=== PATIENT | female | born 1995 | race African-American/Black ===

== ENCOUNTER → 2016-11-10 16:23 | Observation (INO) ==
--- NOTE | 2016-11-10 16:30 | OB/GYN Progress Note ---
Date of Encounter: 11/10/16 Time of Encounter: 16:25 - Assessment and Plan (1) Vaginal bleeding during , antepartum Current Visit: Yes Status: Resolved resolved (2) Vaginal discharge during in second trimester Current Visit: Yes Status: Acute speculum exam completed vaginosis panel, GC/chlamydia - patient will be called with results (3) 25 weeks gestation of Current Visit: Yes Status: Acute Subjective - Subjective Interval history: Effie Sorensen is a 21 yo female at 25 weeks who presents to L&D with complaints of vaginal spotting and abdominal cramping earlier today. Since she has been at the hospital, she has not had any vaginal bleeding. Reports good movement. Denies headache, blurred vision, dizziness, loss of vaginal fluid. She is concerned that she might have an STD because she just found out her partner has been cheating. Antepartum ROS: vaginal bleeding (cramping) Objective - Vital Signs Vital Signs: Intake and Output 11/10/16 11/10/16 11/10/16 07:59 15:59 23:59 Other: Weight 67.5 kg Patient Weight 11/10/16 23:59 Weight 67.5 kg - Exam FHR comments: FHT reassuring for gestational age Abdomen: Present: normal appearance, gravid Uterus: Present: normal Cervical dilation: 0 Cervix effacement: thick Comments: : speculum - white frothy discharge in vagina, no open sores
[2016-11-10 17:44] LABS: Candida DNA Not Detected (Not Detect); Gardnerella DNA ***DETECTED*** (Not Detect); Trichomonas DNA Not Detected (Not Detect)
== END | disposition home or self-care (01) ==
LOC: 1NENULAB
PROVIDERS: ADMIT Obstetrics & Gynecology; ATTEND Obstetrics & Gynecology

== ENCOUNTER → 2016-11-13 02:05 | Observation (INO) ==
--- NOTE | 2016-11-13 00:36 | OB/GYN History & Physical ---
Date of Encounter: 11/13/16 Time of Encounter: 00:35 Assessment and Plan (1) Antepartum bleeding, second trimester Current visit: Yes Status: Acute Extended monitoring Serial cervical exam Speculum exam Monitor for contractions History of Present Illness Chief complaint: Episode of Vaginal Spotting HPI: Ms. Sorensen is a 21 year old female, , 25w2d who presents to L&D with complaints of vaginal spotting (was here three days ago on the 4th). Reports good movement and denies contractions. Reports a "small gush" of blood today. Pt endorses sexual intercourse prior to noticing bloody vaginal discharge. Past Med Surg Social Fam HX - Past Medical History Medical history: no medical history Psychiatric history: no psych history - Past Surgical History Surgical History: no surgical history, other - Social History Smoking Status: Current every day smoker Smokeless Tobacco Status: No Alcohol use: none, occasionally Drug use: none - Family History Mother Adopted: Yes Medications and Allergies Prenata Chewable Tablet 1 tab PO DAILY 06/17/15 [History] Allergies No Known Allergies Allergy (Verified 12/03/14 15:39) Review of System OB - Genitourinary Genitourinary: vaginal discharge - Menstruation Menstruation: amenorrhea Exam - Constitutional Constitutional: well developed, well nourished, no acute distress - HEENT HEENT: Mucus Membranes Moist - Neck Neck exam: full ROM - Lungs Respiratory exam: CTAB - Cardiovascular Cardiovascular exam: +S2 - Abdomen Abdomen: Present: bowel sounds normal - Vulva Vulva: bilateral: normal - Vagina Vagina: Present: normal moisture - Cervix Dilation: 0 Effacement: 10 Station: -3 - Uterus Uterus exam: Present: enlarged Results All other labs normal.
--- NOTE | 2016-11-15 13:09 | Discharge Summary ---
Date of Encounter: 11/13/16 Time of Encounter: 02:15 - Discharge Diagnosis (1) Vaginal bleeding in Priority: Primary Status: Acute Comments: Patient left AMA . (2) 25 weeks gestation of Priority: Secondary Status: Acute - Discharge Medications Home Medications: Prenata Chewable Tablet 1 tab PO DAILY 06/17/15 [History] Allergies/Adverse Reactions: Allergies No Known Allergies Allergy (Verified 12/03/14 15:39) Date of admission: 11/13/16 00:08 Primary care physician: PCP NONE - Patient Status Disposition: Left Against Medical Advice Condition: Undetermined Functional capacity at discharge: independent ambulation Overall status at discharge: patient is not back to baseline - Discharge Instructions Follow Up With: NONE,PCP [Primary Care Provider] - Additional Instructions: LABOR AND DELIVERY DISCHARGE INSTRUCTIONS Signs and Symptoms to be Reported to your Doctor Immediately: * Sudden gush, continuous or intermittent lead of fluid from vagina (note the time of gush and color of fluid) * Onset of bright red vaginal bleeding with or without pain (if you had a vaginal exam during this visit you may notice some dark red spotting. This is normal.) * Lower abdominal cramping or backache that is premenstrual-like feeling. * More than 6 contractions in one hour. * Burning during urination, having to urinate more frequently or pain in your mid-back. * A change in the baby's activity. This could be an increase or decrease in activity. * Severe headache which does not go away with tylenol. * Sudden swelling in the face, hands, arms and/or legs. * Upper abdominal pain - sometimes associated with heartburn or nausea and is not relieved by Maalox, Mylanta or Tums. * Dizziness or blurred vision or visual disturbances (seeing stars/lights). * Kick Counts One hour after a meal, lay down on one side in a quiet place. Count the number of triny the baby moves during an hour. If less than 6 movements, notify your physician. Diet: *Force fluids - 8-10 tall glasses of fluid per day. May include popsicles and jello. *Limit caffeine - this includes chocolate, coffee, tea, any soft drink containing such as all donta, Bradford Yellow and Mountain Dew - Diet and Activity Diet: advance to your usual diet Hospital Course CRE[facility] Time Attestation: Total time spent providing and/or coordinating discharge services: Exam - Constitutional General appearance IM: A&O X 3 - Respiratory Respiratory exam: Present: CTAB - Cardiovascular Cardiovascular exam IM: Present: RRR - GI/Abdominal GI/Abdominal exam IM: normal bowel sounds - Extremities Exam Extremities exam IM: Present: full ROM - Neurological Exam Neurological exam: CN II-XII intact - VTE Reasons for not Prescribing Prophylaxis: Treatment not Indicated - Low risk for VTE - Attending Attestation shannon cordero md [facility]
== END | disposition left against medical advice (07) ==
LOC: 1NENULAB
PROVIDERS: ADMIT Obstetrics & Gynecology; ATTEND Obstetrics & Gynecology

== ENCOUNTER 2017-01-26 12:49 | Observation (INO) ==
[2017-01-26 13:37] LABS: Amphetamine Screen,Urine Negative ng/mL (Cutoff=1000); Barbiturate Screen,Urine Negative ng/mL (Cutoff=200); Benzodiazepines Screen,Urine Negative ng/mL (Cutoff=200); Cannabinoid Screen,Urine Negative ng/mL (Cutoff = 50); Cocaine Screen,Urine Negative ng/mL (Cutoff= 300); Opiate Screen,Urine Positive ng/mL (Cutoff=300); Phencyclidine Screen,Urine Negative ng/mL (Cutoff=25)
--- NOTE | 2017-01-26 16:44 | OB/GYN Progress Note ---
Addendum entered and electronically signed by Hubert Keen DO 01/26/17 17 :02: Patient was only given a one time dose of vistaril. Original Note: Date of Encounter: 01/26/17 Time of Encounter: 13:45 - Assessment and Plan (1) 36 weeks gestation of Current Visit: Yes Status: Acute (2) Uterine contractions Current Visit: Yes Status: Acute Patient had a reactive NST. Cervical dilation stayed at 3 cm after 2 hours of observation. Denies vaginal fluid leakage or bleeding. She does not meet criteria for admission. UDS was positive for opiates. - Will be discharged home with vistaril. - Repeat UDS test (per patient's request). I examined this patient and my medical decision-making was reviewed with the Resident Physician. I agree with the documented findings, disposition and treatment plan as described except to the extent set forth below. Patient made cervical change at last vaginal exam;was admitted for labor. See H &P for admission documentation. Annie Kirkpatrick CNM Subjective - Subjective Principal diagnosis: Labor evaluation Interval history: Ms. Chou is a 21 YO female at 36 5/7 wks presentation with a PMH of drug abuse that presents for contractions. She says they started around 1 pm yesterday and have been 9-10 minutes apart. She denies any vaginal fluid leakage or bleeding, She admits to occasional nausea throughout her , but denies vomiting. She denies any DELVALLE, vision changes, chest pain, shortness of breath, fever, or chills. HepBSAg: non-reactive (07/04/16) Rubella Ab: positive T. Pallidum: non-reactive HIV Ag/Ab: non-reactive GBS: negative Blood type: A+ Antepartum ROS: contractions Objective - Vital Signs Vital Signs: Intake and Output 01/26/17 01/26/17 01/26/17 07:59 15:59 23:59 Other: Weight 73 kg Patient Weight 01/26/17 23:59 Weight 73 kg BP: 138/77 Pulse: 99 - Exam FHR: auscultation normal Auscultation: bilateral: normal Abdomen: Present: normal appearance, soft, gravid. Absent: tenderness Uterus: Present: normal, firm Cervical dilation: 2-3 cm on arrival (per nurse). Cervix effacement: 75% (per nurse) Comments: CV: RRR. +S1 +S2 no murmurs Neuro: +2 DTRs in upper and lower extremities bilaterally Ext: Pedal and radial pulses intact and symmetrical bilaterally - Labs Labs: Abnormal lab results Urine Opiates Screen Positive ng/mL ([id number]=[id number]) H 01/26/17 12:55
[2017-01-26] MEDS ORDERED: hydrOXYzine pamoate 25 MG CAPSULE PO ONE (17:00)
--- NOTE | 2017-01-26 17:34 | Event Note ---
Date of Encounter: 01/26/17 Time of Encounter: 17:30 Discussed positive opiate results with Acacia VIEIRA. Added pain management drug screen to urine already sent to lab. Acacia to speak with patient regarding positive results. Second rapid UDS results are negative. Urine was witnessed void.
[2017-01-26 17:58] LABS: Amphetamine Screen,Urine Negative ng/mL (Cutoff=1000); Barbiturate Screen,Urine Negative ng/mL (Cutoff=200); Benzodiazepines Screen,Urine Negative ng/mL (Cutoff=200); Cannabinoid Screen,Urine Negative ng/mL (Cutoff = 50); Cocaine Screen,Urine Negative ng/mL (Cutoff= 300); Opiate Screen,Urine Negative ng/mL (Cutoff=300); Phencyclidine Screen,Urine Negative ng/mL (Cutoff=25)
--- NOTE | 2017-01-26 18:16 | OB/GYN History & Physical ---
Date of Encounter: 01/26/17 Time of Encounter: 18:13 Assessment and Plan (1) Uterine contractions Current visit: Yes Status: Acute Cervical change from 2.5 - 4 cm dilation since admission Admit for labor Patient may fentanyl and/or epidural upon request GBS negative Consider AROM if continues to make change Anticipate vaginal delivery POC per consult. (2) History of drug abuse Current visit: No Status: Acute First Rapid UDS positive for opiates. After discussion with patient, second rapid UDS that was witnessed was negative for opiates. Second urine sent to send-out lab for pain management drug screen. Will need cord-stat and infant will be on 3 day hold. (3) 36 weeks gestation of Current visit: Yes Status: Acute History of Present Illness Chief complaint: Contractions HPI: Ms. Chou is a 21 YO female at 36 5/7 wks presentation with a PMH of drug abuse that presents for contractions. She says they started around 1 pm yesterday and have been 9-10 minutes apart. She denies any vaginal fluid leakage or bleeding, She admits to occasional nausea throughout her , but denies vomiting. She denies any DELVALLE, vision changes, chest pain, shortness of breath, fever, or chills. HepBSAg: non-reactive (07/04/16) Rubella Ab: positive T. Pallidum: non-reactive HIV Ag/Ab: non-reactive GBS: negative Blood type: A+ Past Med Surg Social Fam HX - Past Medical History Medical history: no medical history Psychiatric history: no psych history - Past Surgical History Surgical History: no surgical history, other - Social History Smoking Status: Current every day smoker Smokeless Tobacco Status: No Alcohol use: none, occasionally Drug use: none - Family History Mother History Unknown: Yes Adopted: Yes Living Status: Unknown Obstetrical History - Pregnancies : 3 Para: 2 Term: 2 : 0 Ab's: 0 Livin Medications and Allergies Prenata Chewable Tablet 1 tab PO DAILY 06/17/15 [History] 3 Allergy/AdvReac Type Severity Reaction Status Date / Time No Known Allergies Allergy Verified 12/03/14 15:39 Review of System OB All systems PM: reviewed and no additional remarkable complaints except as stated Exam - Constitutional Constitutional: well developed, well nourished, average body habitus, moderate distress - HEENT HEENT: Normocephaly, Mucus Membranes Moist - Lungs Respiratory exam: CTAB - Cardiovascular Cardiovascular exam: RRR, +S1, +S2 - Breasts Breast: bilateral: normal - Abdomen Abdomen: Present: bowel sounds normal, gravid, non tender - Extremities Extremities exam: normal capillary refill, normal inspection, radial pulses palpable and symmetrical Deep Tendon Reflex Grade: 2+ Normal - Vulva Vulva: bilateral: normal - Vagina Vagina: Present: normal moisture - Cervix Dilation: 4 Effacement: 80 Station: -2 - Uterus Uterus exam: Present: normal size, normal contour - Anus/Rectum Anus/Rectum: Present: normal perianal skin Results All other labs normal. - VTE Reasons for not Prescribing Prophylaxis: Treatment not Indicated - Low risk for VTE
[2017-01-26] MEDS ORDERED: *HR* FentaNYL (PF) 100 MCG/2 ML VIAL IVP PRN (18:23)
[2017-01-26] MEDS ORDERED: Famotidine 20 MG/2 ML VIAL IVP PRN (18:23)
[2017-01-26] MEDS ORDERED: Ondansetron 4 MG/2 ML VIAL IVP PRN (18:23)
[2017-01-26] MEDS ORDERED: Naloxone 0.4 MG/ML INJ IVP PRN ×2 (18:23→19:18)
[2017-01-26] MEDS ORDERED: D5% in Lactated Ringers 1,000 ML IVC SCH (18:30)
[2017-01-26 19:16] LABS: Basophils % 0.2 %; Hemoglobin 10.9 g/dL (11.5-15.4); Immature Granulocytes % 0.8 % (0-4); Lymphocytes % 8.5 %; Mean Corpuscular HGB Conc 36.3 g/dL (31.6-35.5); Mean Corpuscular Hemoglobin 29.1 pg (28.0-33.3); Mean Corpuscular Volume 80.2 fL (83.0-100.0); Mean Platelet Volume 11.5 fL (9.4-12.4); Monocytes # 1.2 K/mcL (0.0-1.3); Monocytes % 4.9 %; Neutrophils # 20.3 K/mcL (1.6-8.9); Platelet Count 285 K/mcL (140-400); Red Blood Count 3.74 M/mcL (3.82-4.97); Red Cell Distribution Width 13.6 % (11.5-14.5); Segmented Neutrophils % 85.6 %
[2017-01-26] MEDS ORDERED: Ringers Solution, Lactated 1,000 ML ONE (19:16)
[2017-01-26] MEDS ORDERED: *HR* FentaNYL (PF) 100 MCG/2 ML VIAL EP ONE (19:18)
[2017-01-26] MEDS ORDERED: EPHEDrine 50 MG/ML VIAL IVP PRN (19:18)
[2017-01-26] MEDS ORDERED: Bupivacaine-MPF 0.25% 10 ML VIAL EP ONE (19:18)
--- NOTE | 2017-01-26 19:22 | Anesthesia Evaluation PreOp ---
Date of Encounter: 01/26/17 Time of Encounter: 19:20 - Past History Planned Operation: KAREN Cardiac History: Denies any Significant Hx Pulmonary History: Denies Any Significant HX [employer] MANAGER History: Denies Any Significant HX Other Medical History: Other (hx opiate abuse, vaginitis 1month ago treated with flagyl gel.) Anesthesia History: No Prior Anesthetic Complications, Past Anesthesia (wisdom teeth extraction) : Yes Alcohol Use: none, occasionally Drug use: opiates (hx opiate abuse, drug screen positive) Medications and Allergies Prenata Chewable Tablet 1 tab PO DAILY 06/17/15 [History] 3 Allergy/AdvReac Type Severity Reaction Status Date / Time No Known Allergies Allergy Verified 12/03/14 15:39 - Meds/Allergy Pre-op Review Medications Reviewed: Yes Allergies Reviewed: Yes Beta Blockers on Current Med List: No Anesthesia Results - Labs 01/26/17 18:49 Anesthesia Exam BP 140/81 P 96 R 18 T 100.1 Height: 5'6" Weight: 73kg NPO (# of Hours): 4 Pain Scale: 0 Pain Scale Used: Numeric (1 - 10) - HEENT Pupil (Motor): Pupils equal Mallampati: II Teeth: Normal Oral Opening: Greater than 3 - [employer] MA[employer]GER LOC: Oriented [employer] MANAGER Motor: Normal RUE, Normal LUE, Normal RLE, Normal LLE, Normal Face [employer] Sensory: Normal: RUE, LUE, RLE, LLE, Face - Cardiac Rhythm: Regular Murmur: None JVD: No Carotid Bruit: No - Pulmonary Respiratory Effort: Symmetrical Anesthesia Assess/Plan ASA Score: 2 Modified Roula Scale for Level of Consciousness: Cooperative, oriented, and tranquil Anesthetic Plan: Regional Autologous Blood: No Monitoring Plan: Standard Monitors Recovery Plan: Other
[2017-01-26] MEDS ORDERED: Epidural Premix (fent/bupiv) 110 ML EP SCH (19:30)
--- NOTE | 2017-01-26 19:52 | Anesthesia Progress Note ---
Date of Encounter: 01/26/17 Time of Encounter: 19:49 Anesthesia Note - Note Note: 01/26/17 19:49 Spoke with pt. regarding increased WBC count regarding increased risk of epidural related infection. Pt. currently afebrile, with no symptoms of infection. Pt. states she wishes for epidural placement and accepts possible risk. Dr. cox notified regarding WBC count and history of vaginitis 1month ago with flagyl treatment.
== END 2017-01-26 21:15 | disposition home or self-care (01) ==
LOC: 1NENULAB
PROVIDERS: ADMIT Student in an Organized Health Care Education/Training Program; ATTEND Student in an Organized Health Care Education/Training Program

== ENCOUNTER 2017-01-27 07:35 | Observation (INO) ==
[2017-01-27 03:54] LABS: Bilirubin,Urine Negative (Negative); Blood,Urine Large (Negative); Clarity,Urine Cloudy (Clear); Color,Urine Yellow (Yellow); Glucose,Urine (UA) Normal (Normal); Ketones,Urine Negative (Negative); Leukocyte Esterase,Urine Large (Negative); Nitrite,Urine Negative (Negative); PH,Urine 7.5 pH Units (5.0-8.0); Protein,Urine Negative (Neg-Trace); Specific Gravity,Urine 1.008 (1.010-1.025); Urobilinogen,Urine Normal (Normal)
[2017-01-27 03:57] LABS: Bacteria,Urine Moderate per hpf (None-Few); Hyaline Casts,Urine None Seen per lpf (None-Few); RBC,Urine 0-3 per hpf (0-3); Squamous Epithelial Cell,Urine Many per lpf (None-Few); WBC,Urine 50-100 per hpf (0-3)
[2017-01-27 04:01] LABS: Amphetamine Screen,Urine Negative ng/mL (Cutoff=1000); Barbiturate Screen,Urine Negative ng/mL (Cutoff=200); Benzodiazepines Screen,Urine Negative ng/mL (Cutoff=200); Cannabinoid Screen,Urine Negative ng/mL (Cutoff = 50); Cocaine Screen,Urine Negative ng/mL (Cutoff= 300); Opiate Screen,Urine Negative ng/mL (Cutoff=300); Phencyclidine Screen,Urine Negative ng/mL (Cutoff=25)
--- NOTE | 2017-02-08 16:25 | OB/GYN Progress Note ---
Date of Encounter: 02/27/17 Time of Encounter: 22:40 - Assessment and Plan (1) 36 weeks gestation of Status: Acute Patient presented to L&D for labor eval, patient deemed not to be in labor, NST reactive, ok for discharge, f/u in office Objective - Labs Labs: Abnormal lab results Urine Clarity Cloudy (Clear) A 01/27/17 03:40 Ur Specific [place] 1.008 (1.010-1.025) L 01/27/17 03:40 Urine Blood Large (Negative) H 01/27/17 03:40 Ur Leukocyte Esterase Large (Negative) H 01/27/17 03:40 Urine Microscopic WBC 50-100 per hpf (0-3) H 01/27/17 03:40 Ur Squamous Epith Cells Many per lpf (None-Few) H 01/27/17 03:40 Urine Bacteria Moderate per hpf (None-Few) H 01/27/17 03:40 Ur Culture Indicated? YES (NO) A 01/27/17 03:40
== END 2017-01-27 07:40 | disposition home or self-care (01) ==
LOC: 1NENULAB
PROVIDERS: ADMIT Student in an Organized Health Care Education/Training Program; ATTEND Student in an Organized Health Care Education/Training Program